=== PATIENT | male | born 1990 ===

== ENCOUNTER 2017-06-12 17:49 | Emergency (ER) | payer OTHER ==
[2017-06-12 18:36] VITALS: TEMP 98.4
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
[2017-06-12 20:32] VITALS: BP 118/78; PULSE 98; RESP 20
[2017-06-13 02:15] VITALS: O2SAT 100
== END 2017-06-12 20:28 | disposition home or self-care (01) ==
LOC: C.ER 17:49
DX: S16.1XXA Strain of muscle, fascia and tendon at neck level, initial encounter (principal); V89.2XXA Person injured in unspecified motor-vehicle accident, traffic, initial encounter